=== PATIENT | male | born 1970 | race Hispanic/Latino ===

== ENCOUNTER → 2020-04-01 | Outpatient (CLI) | payer OTHER ==
[~2020-04-01] VITALS: Ht 182.9 cm; Wt 113.4 kg
[~2020-04-01] MED LIST: ASPIRIN81 MG PO; BENICAR20 MG PO; CRESTOR10 MG PO; EFFIENT10 MG PO; METFORMIN HCL500 M1 PO; METFORMIN HCL500 MG PO; METOPROLOL SUCC50 MG PO; XARELTO10 MG PO
[2020-04-01 11:43] LABS: BASOPHILS # (AUTO) 0.1 (0.0-0.1); BASOPHILS % 0.6 % (0.0-1.0); EOSINOPHILS # (AUTO) 0.2 (0.0-0.4); LYMPHOCYTES # (AUTO) 1.8 (1.0-3.2); LYMPHOCYTES % 21.4 % (18.0-39.1); MEAN CORPUSCULAR HEMOGLOBIN 28.9 pg (28-32); MEAN CORPUSCULAR HGB CONC 33.3 g/dL (31-35); MEAN CORPUSCULAR VOLUME 86.6 fL (81-99); MONOCYTES # (AUTO) 0.6 (0.2-0.8); MONOCYTES % 6.7 % (4.4-11.3); NEUTROPHILS # (AUTO) 5.9 (2.1-6.9); NEUTROPHILS % 68.8 % (38.7-80.0); PLATELET COUNT 159 x10e3/uL (140-360); RED BLOOD COUNT 4.85 x10e6/uL (4.3-5.7); RED CELL DISTRIBUTION WIDTH 12.8 % (11.7-14.4)
[2020-04-01 12:06] LABS: ALANINE AMINOTRANSFERASE 15 IU/L (0-55); ALBUMIN 3.9 g/dL (3.5-5.0); ALKALINE PHOSPHATASE 58 IU/L (40-150); ANION GAP 14.6 mmol/L (8-16); BLOOD UREA NITROGEN 15 mg/dL (7-26); BUN/CREATININE RATIO 17 (6-25); CALCIUM 8.6 mg/dL (8.4-10.2); CARBON DIOXIDE 23 mmol/L (22-29); CHLORIDE 103 mmol/L (98-107); EST GLOMERULAR FILTRATION RATE > 60 ML/MIN (60-); GLUCOSE 146 mg/dL (74-118); POTASSIUM 4.6 mmol/L (3.5-5.1); SODIUM 136 mmol/L (136-145)
== END ==
LOC: DX 05:54 → EDSTATUS 04-05 15:00
PROVIDERS: ATTEND Internal Medicine Interventional Cardiology
DX: Z01.812 Encounter for preprocedural laboratory examination (principal); Z20.828 Contact with and (suspected) exposure to other viral communicable diseases; Z01.818 Encounter for other preprocedural examination; I25.10 Atherosclerotic heart disease of native coronary artery without angina pectoris
CPT/HCPCS: 36415; 80053; 85025; U0002

== ENCOUNTER 2020-04-23 14:24 | Observation (INO) | payer OTHER ==
[2020-04-19 12:21] LABS: BASOPHILS # (AUTO) 0.1 (0.0-0.1); BASOPHILS % 0.6 % (0.0-1.0); EOSINOPHILS # (AUTO) 0.2 (0.0-0.4); EOSINOPHILS % 2.2 % (0.0-6.0); HEMATOCRIT 40.5 % (38.2-49.6); HEMOGLOBIN 13.6 g/dL (14.0-18.0); LYMPHOCYTES # (AUTO) 1.8 (1.0-3.2); LYMPHOCYTES % 20.4 % (18.0-39.1); MEAN CORPUSCULAR HEMOGLOBIN 28.8 pg (28-32); MEAN CORPUSCULAR HGB CONC 33.6 g/dL (31-35); MEAN CORPUSCULAR VOLUME 85.8 fL (81-99); MONOCYTES # (AUTO) 0.5 (0.2-0.8); MONOCYTES % 5.6 % (4.4-11.3); NEUTROPHILS # (AUTO) 6.2 (2.1-6.9); NEUTROPHILS % 70.9 % (38.7-80.0); PLATELET COUNT 173 x10e3/uL (140-360); RED BLOOD COUNT 4.72 x10e6/uL (4.3-5.7); RED CELL DISTRIBUTION WIDTH 12.6 % (11.7-14.4)
[2020-04-19 12:56] LABS: ALANINE AMINOTRANSFERASE 12 IU/L (0-55); ALBUMIN 3.8 g/dL (3.5-5.0); ALKALINE PHOSPHATASE 60 IU/L (40-150); ANION GAP 14.3 mmol/L (8-16); BLOOD UREA NITROGEN 14 mg/dL (7-26); BUN/CREATININE RATIO 15 (6-25); CALCIUM 8.1 mg/dL (8.4-10.2); CARBON DIOXIDE 23 mmol/L (22-29); CHLORIDE 103 mmol/L (98-107); CREATININE, SERUM 0.95 mg/dL (0.72-1.25); EST GLOMERULAR FILTRATION RATE > 60 ML/MIN (60-); GLUCOSE 209 mg/dL (74-118); POTASSIUM 4.3 mmol/L (3.5-5.1); SODIUM 136 mmol/L (136-145)
[~2020-04-23] VITALS: Ht 182.9 cm; Wt 111.3 kg
[2020-04-23] VITALS (17 sets, daily range): BP systolic 98–123; BP diastolic 68–86
[~2020-04-23 14:24] MED LIST changes: -ASPIRIN81 MG PO; -EFFIENT10 MG PO; -METFORMIN HCL500 M1 PO; -METOPROLOL SUCC50 MG PO; -XARELTO10 MG PO
[2020-04-23] MEDS ORDERED: METOPROLOL SUCC50 MG PO (14:26)
[2020-04-23] MEDS ORDERED: METFORMIN HCL500 M1 PO (14:26)
[2020-04-23] MEDS ORDERED: DIPHENHYDRAMINE HCL 25 MG CAP ONE (14:53)
[2020-04-23] MEDS ORDERED: ALPRAZOLAM 0.5 MG TAB ONE (14:53)
[2020-04-23] MEDS ORDERED: VERAPAMIL HCL 2.5 MG/ML 2 ML VIAL ONE (15:02)
[2020-04-23] MEDS ORDERED: MIDAZOLAM HCL 2 MG/2 ML VIAL ONE (15:02)
[2020-04-23] MEDS ORDERED: LIDOCAINE HCL 2% LOCAL 20 ML VIAL ONE (15:03)
[2020-04-23] MEDS ORDERED: FENTANYL CITRATE/PF 100MCG/2 ML INJ ONE (15:03)
[2020-04-23] MEDS ORDERED: HEPARIN SOD/SOD CHLORIDE 2,000 ML ONE (15:04)
[2020-04-23] MEDS ORDERED: IOPAMIDOL 370 MG/ML 200 ML INFUS..BTL INJ ONE (15:04)
[2020-04-23] MEDS ORDERED: SODIUM CHLORIDE 0.9% 1000ML 1,000 ML ONE (15:04)
[2020-04-23] MEDS ORDERED: BIVALRIUDIN 250 MG/VIAL VIAL IV ONE (16:27)
[2020-04-23] MEDS ORDERED: SODIUM CHLORIDE 0.9% 50ML 50 ML ONE (16:27)
[2020-04-23] MEDS ORDERED: PRASUGREL 10 MG TAB ONE (16:41)
[2020-04-23] MEDS ORDERED: ASPIRIN 325 MG TAB ONE (16:41)
[2020-04-23] MEDS ORDERED: CRESTOR 10MG PO SCH (21:00)
[2020-04-24] VITALS: BP 133/91
[2020-04-24 04:00] VITALS: BP 139/84
[2020-04-24 08:00] VITALS: BP 126/88
[2020-04-24] MEDS ORDERED: METFORMIN HCL 500 MG TAB CR PO SCH (08:00)
[2020-04-24 08:08] VITALS: BP 139/84
[2020-04-24] MEDS ORDERED: ASPIRIN 81 MG ENTERIC COATED PO SCH (09:00)
[2020-04-24] MEDS ORDERED: OLMESARTAN 20 MG TAB PO SCH (09:00)
[2020-04-24] MEDS ORDERED: PRASUGREL 10 MG TAB PO SCH (09:00)
[2020-04-24] MEDS ORDERED: RIVAROXABAN 10 MG TABLET PO SCH (09:00)
[2020-04-24] MEDS ORDERED: METOPROLOL SUCCINATE 50 MG TAB XL PO SCH (09:00)
[2020-04-24] MEDS ORDERED: ASPIRIN81 MG PO (11:31)
[2020-04-24] MEDS ORDERED: EFFIENT10 MG PO (11:32)
[2020-04-24] MEDS ORDERED: XARELTO10 MG PO (11:33)
[2020-04-24 11:58] VITALS: BP 124/84
== END 2020-04-24 13:00 | disposition home or self-care (01) ==
LOC: CATH LAB 14:24 → CATH LAB V 17:14 → MED/SURG 20:19
PROVIDERS: ADMIT Internal Medicine Interventional Cardiology; ATTEND Internal Medicine Interventional Cardiology
DX: I25.118 Atherosclerotic heart disease of native coronary artery with other forms of angina pectoris (principal); E11.9 Type 2 diabetes mellitus without complications; E78.00 Pure hypercholesterolemia, unspecified; Z88.8 Allergy status to other drugs, medicaments and biological substances; Z20.828 Contact with and (suspected) exposure to other viral communicable diseases; Z01.812 Encounter for preprocedural laboratory examination
CPT/HCPCS: 36415 ×2; 76937; 80053; 82948; 85025; 92928; 93454; C1769; C1874; C1887; G0378 ×2; J0583; J2001; J2250; J3010; J7030; Q9967; U0002; 99152; 99153